=== PATIENT | female | born 1970 | race Caucasian/White ===

== ENCOUNTER 2018-10-14 06:56 | Day surgery (SDC) | payer OTHER ==
[~2018-10-14 06:56] MED LIST: Lactated Ringers 1,000 ML IV SCH; Lidocaine 1%/Sod Bicarbonate in NS 8.4% 1 ML Syringe IDERM PRN; Sodium Chloride 0.9% 10 ML Syringe FLUSH PRN
[2018-10-14] MEDS ORDERED: Scopolamine 1.5 MG Transdermal Patch TRDERM PRN (07:00)
[2018-10-14] MEDS ORDERED: Lidocaine 1% with EPINEPHrine 1:100,000 20 ML MDV ONE ×2 (07:08→07:44)
[2018-10-14] MEDS ORDERED: Bupivacaine 0.5% 30 ML SDV ONE (07:08)
[2018-10-14] MEDS ORDERED: Sodium Chloride 0.9% 50 ML SDV ONE ×2 (07:08→07:44)
[2018-10-14] MEDS ORDERED: Propofol 200 MG/20 ML SDV ONE (07:09)
[2018-10-14] MEDS ORDERED: fentaNYL 100 MCG/2 ML SDV ONE ×2 (07:10→08:19)
[2018-10-14] MEDS ORDERED: Midazolam 1 MG/ML 2 ML SDV ONE (07:10)
[2018-10-14] MEDS ORDERED: Rocuronium 50 MG/5 ML Vial ONE (07:10)
[2018-10-14] MEDS ORDERED: Ondansetron 4 MG/2 ML SDV ONE (07:11)
[2018-10-14] MEDS ORDERED: Ketorolac 30 MG/ML SDV ONE (07:11)
--- NOTE | 2018-10-14 07:24 | PCM.PREANE ---
Preanesthetic Assessment - Anesthesia/Transfusion/Family Hx Anesthesia History: Prior Anesthesia Without Reaction Family History of Anesthesia Reaction: No Transfusion History: No Prior Transfusion(s) Type of Transfusion Reactions: Reports: Unknown Intubation History: Unknown - Review of Systems General: No Symptoms Pulmonary: No Symptoms Cardiovascular: No Symptoms Gastrointestinal: No Symptoms Neurological: No Symptoms Other: Reports: Depression - Physical Assessment NPO Status Date: 10/13/18 NPO Status Time: 07:00 Height: 1.75 m Weight: 127.006 kg ASA Class: 3 Mental Status: Alert & Oriented x3 Airway Class: Mallampati = 3 Dentition: Reports: Missing Tooth/Teeth Lungs: Clear to Auscultation, Normal Respiratory Effort Cardiovascular: Regular Rate, Regular Rhythm - Allergies Allergies/Adverse Reactions: Allergies Allergy/AdvReac Type Severity Reaction Status Date / Time levofloxacin Allergy Redness Verified 10/13/18 11:17 - Blood Blood Available: Yes - Acknowledgements Anesthesia Type Planned: General Anesthesia Pt an Appropriate Candidate for the Planned Anesthesia: Yes Alternatives and Risks of Anesthesia Discussed w Pt/Guardian: Yes Pt/Guardian Understands and Agrees with Anesthesia Plan: Yes Additional Comments: diagnosed with a murmur- no comments when hasd PreAnesthesia Questionnaire HEENT History: Reports: Sinusitis, Other (See Below) Other HEENT History: conjunctivitis Cardiovascular History: Reports: Other (See Below) Other Cardiovascular History: abnormal stress test, chest pain (was ruled out by cardiology) Respiratory History: Reports: None Gastrointestinal History: Reports: GERD, Other (See Below) Other Gastrointestinal History: irregular bowel habits Genitourinary History: Reports: Renal Disease TAILINGS MAN History: Reports: Endometrial Ablation, Other (See Below) Other OB/BYN History: ovarian cyst, post menopausal bleeding, irregular menses, pelvic pain, vaginosis Musculoskeletal History: Reports: Gout, Other (See Below) Other Musculoskeletal History: achilles tendonitis, right ankle pain, right wrist cyst excision Neurological History: Reports: None Psychiatric History: Reports: Depression Endocrine/Metabolic History: Reports: None Hematologic History: Reports: None Immunologic History: Reports: None Oncologic (Cancer) History: Reports: None Dermatologic History: Reports: Other (See Below) Other Dermatologic History: abcess, herpes zoster - Past Surgical History Head Surgeries/Procedures: Reports: None HEENT Surgical History: Reports: Radial Keratotomy, Tonsillectomy Cardiovascular Surgical History: Reports: None Respiratory Surgical History: Reports: None GI Surgical History: Reports: Colonoscopy Female Surgical History: Reports: None Male Surgical History: Reports: None Endocrine Surgical History: Reports: None Neurological Surgical History: Reports: None Oncologic Surgical History: Reports: None Dermatological Surgical History: Reports: None - SUBSTANCE USE Smoking Status *Q: Never Smoker Recreational Drug Use History: No - HOME MEDS Home Medications: Home Meds DULoxetine [Cymbalta] 30 mg PO DAILY 10/01/13 [History] lamoTRIgine [Lamictal] 100 mg PO DAILY 10/01/13 [History] Cholecalciferol (Vitamin D3) [Vitamin D3] 2,000 unit PO DAILY 10/13/18 [History] Fish Oil/DHA/EPA [Fish Oil 1,200 MG] 1 cap PO DAILY 10/13/18 [History] Ranitidine HCl [Zantac] 150 mg PO DAILY 10/13/18 [History] - CURRENT (IN HOUSE) MEDS Current Meds: Current Medications Lactated Ringer's (Ringers, Lactated) 1,000 mls @ 125 mls/hr IV ASDIRECTED KAMALA Stop: 10/14/18 23:00 Lidocaine/Sodium Bicarbonate (Buffered Lidocaine 1% In Ns 8.4%) 0.25 ml IDERM ONETIME PRN PRN Reason: Prior to IV Start Stop: 10/14/18 18:00 Scopolamine (Transderm-Scop) 1.5 mg TRDERM ONETIME PRN PRN Reason: Nausea Stop: 10/14/18 18:00 Last Admin: 10/14/18 07:19 Dose: 1.5 mg Sodium Chloride (Saline Flush) 10 ml FLUSH ASDIRECTED PRN PRN Reason: Keep Vein Open Stop: 10/14/18 18:00 Discontinued Medications Bupivacaine HCl (Marcaine 0.5%) Confirm Administered Dose 30 ml .ROUTE .STK-MED ONE Stop: 10/14/18 07:09 Fentanyl (Sublimaze) Confirm Administered Dose 100 mcg .ROUTE .STK-MED ONE Stop: 10/14/18 07:11 Ketorolac Tromethamine (Toradol) Confirm Administered Dose 30 mg .ROUTE .STK- MED ONE Stop: 10/14/18 07:12 Lidocaine/Epinephrine (Xylocaine 1% With Epinephrine 1:100,000) Confirm Administered Dose 20 ml .ROUTE .STK-MED ONE Stop: 10/14/18 07:09 Midazolam HCl (Versed 1 Mg/Ml) Confirm Administered Dose 2 mg .ROUTE .STK-MED ONE Stop: 10/14/18 07:11 Ondansetron HCl (Zofran) Confirm Administered Dose 4 mg .ROUTE .STK-MED ONE Stop: 10/14/18 07:12 Propofol (Diprivan 20 Ml) Confirm Administered Dose 200 mg .ROUTE .STK-MED ONE Stop: 10/14/18 07:10 Rocuronium [place] (Zemuron) Confirm Administered Dose 50 mg .ROUTE .STK-MED ONE Stop: 10/14/18 07:11 Sodium Chloride (Normal Saline) Confirm Administered Dose 50 ml .ROUTE .[employer]-MED ONE Stop: 10/14/18 07:09
[2018-10-14] MEDS ORDERED: ceFAZolin 1 GM Vial ONE ×2 (07:31)
[2018-10-14] MEDS ORDERED: HYDROmorphone 0.5 MG/0.5 ML Syringe ONE ×4 (08:20→08:21)
[2018-10-14] MEDS ORDERED: Dexamethasone 4 MG/ML 5 ML MDV ONE (08:42)
[2018-10-14] MEDS ORDERED: Labetalol 100 MG/20 ML MDV ONE (08:58)
--- NOTE | 2018-10-14 10:00 | PCM.OPNOTE ---
- General Post-Op/Procedure Note Date of Surgery/Procedure: 10/14/18 Operative Procedure(s): total vaginal hysterectomy bilateral salpingo- oophorectomy Pre Op Diagnosis: postmenopausal bleeding, irregular menses, cystic left ovary Post-Op Diagnosis: Same Anesthesia Technique: General ET Tube Primary Surgeon: Madi Cleary Secondary Surgeon: Edwin Boykin Anesthesia Provider: Philippe Bill Studio Owner: Teodoro Nielson (VICK) Studio Owner: Bethany Rich (VICK) Reason Studio Owner Was Necessary: difficulty of surgery, retraction, decrease comorbidity and mortality Role of Studio Owner: difficulty of surgery, retraction, decrease comorbidity and mortality Fluid Replacement, Intraop: 1,200 Output, Urine Amount: 20 (clear yellow) EBL in mLs: 150 Drain/Tube Comments:: none Complications: None Condition: Good Free Text/Narrative:: Patient was transported to the operating room and placed under general anesthesia with endotracheal intubation low dorsal lithotomy position. Prepared and draped in a sterile fashion. SCDs functioning prior surgery. Ancef 2 g given intravenously prior surgery. Examination under anesthesia revealed anterior uterus with small left adnexal cyst. The determination was made to proceed vaginally rather than laparoscope assisted. This had been discussed with patient. Timeout was performed. The uterus was grasped and 0.25% lidocaine with epinephrine injected in multiple confluent areas 20 mL total. Circumscribing the cervix posterior colpotomy was performed. Long weighted speculum placed and crossclamping with the Enseal activating and incising the left to grow cardinal ligament sec 2, same procedure carried out on the opposite side proceeding cephalad crossclamping incising with the Enseal uterine vasculature was crossclamped. Anterior colpotomy was then performed. Proceeding cephalad crossclamping activating Enseal and incising until the triple pedicle was approximated. The uterus was then brought to the posterior cul-de-sac crossclamping the left triple pedicle incising same procedure carried out on the opposite side the uterus was removed the left tube and ovary grasped with long [place] clamp and utilizing Enseal crossclamping the infundibulopelvic ligament activating and incising the left tube and ovary removed same procedure was carried out on the right side of what appeared to be the right ovary which is very small measuring approximately 1.2 x 8 mm x 8 mm. No other additional structure. The ovary. All tissue sent to pathology for tissue evaluation the posterior vaginal cuff was then closed with a running locking suture of 0 Monocryl and evaluation for hemostasis showed no bleeding. The anterior and posterior cuff was approximated with 0 Monocryl. Sponge needle pack and instrument count correct 2. No blood transfusions required. 20 mL of clear yellow urine obtained from the bladder at the end procedure. Patient transported postanesthesia care unit in satisfactory condition. She lives in [facility] will be Extended Recovery Overnight and Probably Sent Home Tomorrow Morning.
--- NOTE | 2018-10-14 10:02 | PCM48HPAN ---
Post Anesthesia Note - EVALUATION WITHIN 48HRS OF ANESTHETIC Vital Signs in Normal Range: Yes Patient Participated in Evaluation: Yes Respiratory Function Stable: Yes Airway Patent: Yes Cardiovascular Function Stable: Yes Hydration Status Stable: Yes Pain Control Satisfactory: Yes Nausea and Vomiting Control Satisfactory: Yes Mental Status Recovered: Yes Resp Rate: 16
--- NOTE | 2018-10-14 10:02 | PCM.POSTAN ---
POST ANESTHESIA ASSESSMENT - MENTAL STATUS Mental Status: Alert - RESPIRATORY Respiratory Status: Respiratory Rate WNL, Airway Patent, O2 Saturation Stable, Supplemental Oxygen - CARDIOVASCULAR CV Status: Pulse Rate WNL, Blood Pressure Stable - GASTROINTESTINAL GI Status: No Symptoms - POST OP HYDRATION Hydration Status: Adequate & Stable
[2018-10-14] MEDS ORDERED: Ondansetron 4 MG/2 ML SDV IV PRN (10:09)
[2018-10-14] MEDS ORDERED: Ondansetron 4 MG in Sodium Chloride 0.9% 50 ML IV SCH (10:15)
[2018-10-14] MEDS: Acetaminophen/oxyCODONE 325-5 MG Tab PO PRN (11:07)
[2018-10-14] MEDS: Ketorolac 30 MG/ML SDV IVPUSH SCH ×2 (14:08→21:13)
[2018-10-14] MEDS ORDERED: Ondansetron 4 MG/2 ML SDV IVPUSH ONE (15:24)
[2018-10-14] MEDS ORDERED: DULoxetine 30 MG Cap PO SCH (16:00)
[2018-10-14] MEDS ORDERED: lamoTRIgine 100 MG Tab PO SCH (16:00)
[2018-10-14] MEDS ORDERED: Ranitidine Hcl 150 MG PO SCH (16:00)
[2018-10-15] MEDS: Ketorolac 30 MG/ML SDV IVPUSH SCH (01:20)
--- NOTE | 2018-10-15 08:03 | PCM.DCSUM1 ---
Discharge Summary - Hospital Course Free Text/Narrative:: [facility] Post-Op/Procedure Note Patient Name: ROBERT LANCASTER Date of : 66 Patient Status: Surgical Day Care Attending Provider: Madi Cleary Date: 10/14/18 09:50 Initialization Date: 10/14/18 09:50 - General Post-Op/Procedure Note Date of Surgery/Procedure: 10/14/18 Operative Procedure(s): total vaginal hysterectomy bilateral salpingo- oophorectomy Pre Op Diagnosis: postmenopausal bleeding, irregular menses, cystic left ovary Post-Op Diagnosis: Same Anesthesia Technique: General ET Tube Primary Surgeon: Madi Cleary Secondary Surgeon: Edwin Boykin Anesthesia Provider: Philippe Bill Rugby [employer] Footballer: Teodoro Nielson (PAS) Rugby Union Footballer: Bethany Rich (PAS) Reason Rugby Union Footballer Was Necessary: difficulty of surgery, retraction, decrease comorbidity and mortality Role of Rugby Union Footballer: difficulty of surgery, retraction, decrease comorbidity and mortality Fluid Replacement, Intraop: 1,200 Output, Urine Amount: 20 (clear yellow) EBL in mLs: 150 Drain/Tube Comments:: none Complications: None Condition: Good Free Text/Narrative:: Patient was transported to the operating room and placed under general anesthesia with endotracheal intubation low dorsal lithotomy position. Prepared and draped in a sterile fashion. SCDs functioning prior surgery. Ancef 2 g given intravenously prior surgery. Examination under anesthesia revealed anterior uterus with small left adnexal cyst. The determination was made to proceed vaginally rather than laparoscope assisted. This had been discussed with patient. Timeout was performed. The uterus was grasped and 0.25% lidocaine with epinephrine injected in multiple confluent areas 20 mL total. Circumscribing the cervix posterior colpotomy was performed. Long weighted speculum placed and crossclamping with the Enseal activating and incising the left to grow cardinal ligament sec 2, same procedure carried out on the opposite side proceeding cephalad crossclamping incising with the Enseal uterine vasculature was crossclamped. Anterior colpotomy was then performed. Proceeding cephalad crossclamping activating Enseal and incising until the triple pedicle was approximated. The uterus was then brought to the posterior cul-de-sac crossclamping the left triple pedicle incising same procedure carried out on the opposite side the uterus was removed the left tube and ovary grasped with long José Miguel clamp and utilizing Enseal crossclamping the infundibulopelvic ligament activating and incising the left tube and ovary removed same procedure was carried out on the right side of what appeared to be the right ovary which is very small measuring approximately 1.2 x 8 mm x 8 mm. No other additional structure. The ovary. All tissue sent to pathology for tissue evaluation the posterior vaginal cuff was then closed with a running locking suture of 0 Monocryl and evaluation for hemostasis showed no bleeding. The anterior and posterior cuff was approximated with 0 Monocryl. Sponge needle pack and instrument count correct 2. No blood transfusions required. 20 mL of clear yellow urine obtained from the bladder at the end procedure. Patient transported postanesthesia care unit in satisfactory condition. She lives in [facility] will be Extended Recovery Overnight and Probably Sent Home Tomorrow Morning. 10/15/2018 0758 Patient kept on extended floor recover overnight to manage O2, nausea postop and pain. Doing well this morning no nausea, O2 normal on room air and no bleeding. Labs reviewed. Dismiss to RTC 2 weeks. HPI Initial Comments: [facility] Post-Op/Procedure Note Patient Name: ROBERT LANCASTER Date of : 66 Patient Status: Surgical Day Care Attending Provider: Madi Cleary Date: 10/14/18 09:50 Initialization Date: 10/14/18 09:50 - General Post-Op/Procedure Note Date of Surgery/Procedure: 10/14/18 Operative Procedure(s): total vaginal hysterectomy bilateral salpingo- oophorectomy Pre Op Diagnosis: postmenopausal bleeding, irregular menses, cystic left ovary Post-Op Diagnosis: Same Anesthesia Technique: General ET Tube Primary Surgeon: Madi Cleary Secondary Surgeon: Edwin Boykin Anesthesia Provider: Philippe Bill Rugby [employer] Footballer: Teodoro Nielson (PAS) Rugby [employer] Footballer: Bethany Rich (PAS) Reason Rugby Union Footballer Was Necessary: difficulty of surgery, retraction, decrease comorbidity and mortality Role of Rugby Union Footballer: difficulty of surgery, retraction, decrease comorbidity and mortality Fluid Replacement, Intraop: 1,200 Output, Urine Amount: 20 (clear yellow) EBL in mLs: 150 Drain/Tube Comments:: none Complications: None Condition: Good Free Text/Narrative:: Patient was transported to the operating room and placed under general anesthesia with endotracheal intubation low dorsal lithotomy position. Prepared and draped in a sterile fashion. SCDs functioning prior surgery. Ancef 2 g given intravenously prior surgery. Examination under anesthesia revealed anterior uterus with small left adnexal cyst. The determination was made to proceed vaginally rather than laparoscope assisted. This had been discussed with patient. Timeout was performed. The uterus was grasped and 0.25% lidocaine with epinephrine injected in multiple confluent areas 20 mL total. Circumscribing the cervix posterior colpotomy was performed. Long weighted speculum placed and crossclamping with the Enseal activating and incising the left to grow cardinal ligament sec 2, same procedure carried out on the opposite side proceeding cephalad crossclamping incising with the Enseal uterine vasculature was crossclamped. Anterior colpotomy was then performed. Proceeding cephalad crossclamping activating Enseal and incising until the triple pedicle was approximated. The uterus was then brought to the posterior cul-de-sac crossclamping the left triple pedicle incising same procedure carried out on the opposite side the uterus was removed the left tube and ovary grasped with long José Miguel clamp and utilizing Enseal crossclamping the infundibulopelvic ligament activating and incising the left tube and ovary removed same procedure was carried out on the right side of what appeared to be the right ovary which is very small measuring approximately 1.2 x 8 mm x 8 mm. No other additional structure. The ovary. All tissue sent to pathology for tissue evaluation the posterior vaginal cuff was then closed with a running locking suture of 0 Monocryl and evaluation for hemostasis showed no bleeding. The anterior and posterior cuff was approximated with 0 Monocryl. Sponge needle pack and instrument count correct 2. No blood transfusions required. 20 mL of clear yellow urine obtained from the bladder at the end procedure. Patient transported postanesthesia care unit in satisfactory condition. She lives in [facility] will be Extended Recovery Overnight and Probably Sent Home Tomorrow Morning. 10/15/2018 0758 Patient kept on extended floor recover overnight to manage O2, nausea postop and pain. Doing well this morning no nausea, O2 normal on room air and no bleeding. Labs reviewed. Dismiss to RTC 2 weeks. Brief History: [facility] . Post-Op/Procedure Note. Patient Name: ROBERT LANCASTER Record Number: [id number]. Date of : Patient Status: Surgical Day Care. Attending Provider: Madi Clearyount Number: [id number]. Date: 10/14/18 09:50Initialization Date: 03/24 09:50. - General Post-Op/Procedure Note. Date of Surgery/Procedure: 03/24. Operative Procedure(s): total vaginal hysterectomy bilateral salpingo- oophorectomy. Pre Op Diagnosis: postmenopausal bleeding, irregular menses, cystic left ovary. Post-Op Diagnosis: Same. Anesthesia Technique: General ET Tube. Primary Surgeon: Madi Cleary. Secondary Surgeon: Edwin Boykin. Anesthesia Provider: Philippe Bill. Rugby Union Footballer: Teodoro Nielson (VICK). Rugby Union Footballer : Bethany Rich (VICK). Reason Rugby Union Footballer Was Necessary: difficulty of surgery, retraction, decrease comorbidity and mortality. Role of Rugby Union Footballer: difficulty of surgery, retraction, decrease comorbidity and mortality. Fluid Replacement, Intraop: 1,200. Output, Urine Amount: 20 (clear yellow). EBL in mLs: 150. Drain/Tube Comments:: none. Complications: None. Condition: Good. Free Text/ Narrative:: Patient was transported to the operating room and placed under general anesthesia with endotracheal intubation low dorsal lithotomy position. Prepared and draped in a sterile fashion. SCDs functioning prior surgery. Ancef 2 g given intravenously prior surgery. Examination under anesthesia revealed anterior uterus with small left adnexal cyst. The determination was made to proceed vaginally rather than laparoscope assisted. This had been discussed with patient. Timeout was performed. The uterus was grasped and 0.25% lidocaine with epinephrine injected in multiple confluent areas 20 mL total. Circumscribing the cervix posterior colpotomy was performed. Long weighted speculum placed and crossclamping with the Enseal activating and incising the left to grow cardinal ligament sec 2, same procedure carried out on the opposite side proceeding cephalad crossclamping incising with the Enseal uterine vasculature was crossclamped. Anterior colpotomy was then performed. Proceeding cephalad crossclamping activating Enseal and incising until the triple pedicle was approximated. The uterus was then brought to the posterior cul-de-sac crossclamping the left triple pedicle incising same procedure carried out on the opposite side the uterus was removed the left tube and ovary grasped with long José Miguel clamp and utilizing Enseal crossclamping the infundibulopelvic ligament activating and incising the left tube and ovary removed same procedure was carried out on the right side of what appeared to be the right ovary which is very small measuring approximately 1.2 x 8 mm x 8 mm. No other additional structure. The ovary. All tissue sent to pathology for tissue evaluation the posterior vaginal cuff was then closed with a running locking suture of 0 Monocryl and evaluation for hemostasis showed no bleeding. The anterior and posterior cuff was approximated with 0 Monocryl. Sponge needle pack and instrument count correct 2. No blood transfusions required. 20 mL of clear yellow urine obtained from the bladder at the end procedure. Patient transported postanesthesia care unit in satisfactory condition. She lives in [facility] will be Extended Recovery Overnight and Probably Sent Home Tomorrow Morning. 10/15/2018 0758. Patient kept on extended floor recover overnight to manage O2, nausea postop and pain. Doing well this morning no nausea, O2 normal on room air and no bleeding. Labs reviewed. Dismiss to RTC 2 weeks. Diagnosis: Stroke: No - Discharge Data Discharge Date: 10/15/18 Discharge Disposition: Home, Self-Care 01 Condition: Good - Discharge Diagnosis/Problem(s) (1) Ovarian cyst, left SNOMED Code(s): 44471094 ICD Code: N83.202 - UNSPECIFIED OVARIAN CYST, LEFT SIDE Status: Acute Current Visit: Yes (2) Irregular menses SNOMED Code(s): 67179701 ICD Code: N92.6 - IRREGULAR MENSTRUATION, UNSPECIFIED Status: Acute Current Visit: Yes (3) Postmenopausal bleeding SNOMED Code(s): 30751580 ICD Code: N95.0 - POSTMENOPAUSAL BLEEDING Status: Acute Current Visit: Yes - Patient Summary/Data Operative Procedure(s) Performed: total vaginal hysterectomy bilateral salpingo- oophorectomy Complications: none during the night Consults: none Hospital Course: uneventful. - Patient Instructions Diet: Usual Diet as Tolerated Driving: Do Not Drive (2 weeks) Showering/Bathing: May Shower, No Tub Bathing/Swimming (I'm 6 weeks) Notify Provider of: Fever, Increased Pain, Swelling and Redness, Drainage, Nausea and/or Vomiting - Discharge Plan *PRESCRIPTION DRUG MONITORING PROGRAM REVIEWED*: Yes *COPY OF PRESCRIPTION DRUG MONITORING REPORT IN PATIENT JULIAN: Yes Prescriptions/Med Rec: Acetaminophen/oxyCODONE [Percocet 325-5 MG] 1 tab PO Q6H PRN #30 tablet PRN Reason: Pain Docusate Sodium [Colace] 100 mg PO BID #60 capsule Ibuprofen [Motrin] 200 - 600 mg PO Q6H PRN #50 tab PRN Reason: Pain Ondansetron [Zofran ODT] 4 mg PO Q6H PRN #20 tab.dis PRN Reason: Nausea Home Medications: Home Meds DULoxetine [Cymbalta] 30 mg PO DAILY 10/01/13 [History] lamoTRIgine [Lamictal] 100 mg PO DAILY 10/01/13 [History] Cholecalciferol (Vitamin D3) [Vitamin D3] 2,000 unit PO DAILY 10/13/18 [History] Fish Oil/DHA/EPA [Fish Oil 1,200 MG] 1 cap PO DAILY 10/13/18 [History] Ranitidine HCl [Zantac] 150 mg PO DAILY 10/13/18 [History] Acetaminophen/oxyCODONE [Percocet 325-5 MG] 1 tab PO Q6H PRN #30 tablet [Rx] Ibuprofen [Motrin] 200 - 600 mg PO Q6H PRN #50 tab 10/14/18 [Rx] Ondansetron [Zofran ODT] 4 mg PO Q6H PRN #20 tab.dis 10/14/18 [Rx] Docusate Sodium [Colace] 100 mg PO BID #60 capsule 10/15/18 [Rx] Referrals: Madi Cleary MD [Physician] - (has follow up in two weeks) - Discharge Summary/Plan Comment DC Time >30 min.: No - Patient Data Vitals - Most Recent: Last Vital Signs Temp 98.2 F 10/15/18 03:41 Pulse 68 10/15/18 03:41 Resp 20 10/15/18 03:41 BP 135/63 10/15/18 03:41 Pulse Ox 96 10/15/18 03:41 Weight - Most Recent: 280 lb I&O - Last 24 hours: Intake & Output 10/14/18 10/15/18 10/15/18 22:59 06:59 14:59 Intake Total 1150 Output Total 250 Balance 900 Lab Results - Last 24 hrs: Laboratory Results - last 24 hr 10/14/18 10/15/18 Range/Units 07:35 05:40 WBC 9.69 (3.98-10.04) K/mm3 RBC 4.82 (3.98-5.22) M/mm3 Hgb 12.7 (11.2-15.7) gm/L Hct 38.8 (34.1-44.9) % MCV 80.5 (79.4-94.8) fl MCH 26.3 (25.6-32.2) pg MCHC 32.7 (32.2-35.5) g/dl RDW Std Deviation 37.5 (36.4-46.3) fL Plt Count 310 (182-369) K/mm3 MPV 9.0 L (9.4-12.3) fl Neut % (Auto) 80.5 H (34.0-71.1) % Lymph % (Auto) 14.2 L (19.3-51.7) % [place] % (Auto) 5.2 (4.7-12.5) % Eos % (Auto) 0 L (0.7-5.8) Baso % (Auto) 0.0 L (0.1-1.2) % Neut # (Auto) 7.80 H (1.56-6.13) K/mm3 Lymph # (Auto) 1.38 (1.18-3.74) K/mm3 [place] # (Auto) 0.50 H (0.24-0.36) K/mm3 Eos # (Auto) 0.00 L (0.04-0.36) K/mm3 Baso # (Auto) 0.00 L (0.01-0.08) K/mm3 Blood Type B POSITIVE Gel Antibody Screen Negative Med Orders - Current: Current Medications Duloxetine HCl (Cymbalta) 30 mg PO DAILY@1600 [facility] Last Admin: 10/14/18 16:29 Dose: 30 mg Lamotrigine (Lamotrigine) 100 mg PO DAILY@1600 [facility] Last Admin: 10/14/18 16:29 Dose: 100 mg Miscellaneous Information (Remove Patch) 0 ea TRDERM ONETIME ONE Stop: 10/17/18 07:01 Ondansetron HCl (Zofran) 4 mg IV Q6H PRN PRN Reason: Nausea/Vomiting Last Admin: 10/14/18 11:34 Dose: 4 mg Oxycodone/Acetaminophen (Percocet 325-5 Mg) 1 - 2 tab PO Q4H PRN PRN Reason: Pain Last Admin: 10/14/18 11:07 Dose: 2 tab Ranitidine Hcl 150 (Mg) 0 each PO DAILY@1600 [facility] Last Admin: 10/14/18 16:29 Dose: Not Given Discontinued Medications Bupivacaine HCl (Marcaine 0.5%) Confirm Administered Dose 30 ml .ROUTE .STK-MED ONE Stop: 10/14/18 07:09 Cefazolin Sodium (Ancef) Confirm Administered Dose 1 gm .ROUTE .STK-MED ONE Stop: 10/14/18 07:32 Cefazolin Sodium (Ancef) Confirm Administered Dose 1 gm .ROUTE .STK-MED ONE Stop: 10/14/18 07:32 Dexamethasone (Dexamethasone) Confirm Administered Dose 20 mg .ROUTE .STK-MED ONE Stop: 10/14/18 08:43 Fentanyl (Sublimaze) Confirm Administered Dose 100 mcg .ROUTE .STK-MED ONE Stop: 10/14/18 07:11 Fentanyl (Sublimaze) Confirm Administered Dose 100 mcg .ROUTE .STK-MED ONE Stop: 10/14/18 08:20 Glycopyrrolate () Confirm Administered Dose 1 mg .ROUTE .STK-MED ONE Stop: 10/14/18 08:27 Hydromorphone HCl (Dilaudid) Confirm Administered Dose 0.5 mg .ROUTE .STK-MED ONE Stop: 10/14/18 08:21 Hydromorphone HCl (Dilaudid) Confirm Administered Dose 0.5 mg .ROUTE .STK-MED ONE Stop: 10/14/18 08:21 Hydromorphone HCl (Dilaudid) Confirm Administered Dose 0.5 mg .ROUTE .STK-MED ONE Stop: 10/14/18 08:21 Hydromorphone HCl (Dilaudid) Confirm Administered Dose 0.5 mg .ROUTE .STK-MED ONE Stop: 10/14/18 08:22 Lactated Ringer's (Ringers, Lactated) 1,000 mls @ 125 mls/hr IV ASDIRECTED [facility] Stop: 10/14/18 23:00 Last Admin: 10/14/18 07:20 Dose: 125 mls/hr Ondansetron HCl 4 mg/ Sodium (Chloride) 52 mls @ 100 mls/hr IV Q6H [facility] Ketorolac Tromethamine (Toradol) Confirm Administered Dose 30 mg .ROUTE .STK- MED ONE Stop: 10/14/18 07:12 Ketorolac Tromethamine (Toradol) 30 mg IVPUSH Q6H [facility] Stop: 10/15/18 02:16 Last Admin: 10/15/18 01:20 Dose: 30 mg Labetalol HCl (Normodyne) Confirm Administered Dose 100 mg .ROUTE .STK-MED ONE Stop: 10/14/18 08:59 Lidocaine/Epinephrine (Xylocaine 1% With Epinephrine 1:100,000) Confirm Administered Dose 20 ml .ROUTE .STK-MED ONE Stop: 10/14/18 07:09 Lidocaine/Epinephrine (Xylocaine 1% With Epinephrine 1:100,000) Confirm Administered Dose 20 ml .ROUTE .STK-MED ONE Stop: 10/14/18 07:45 Last Admin: 10/14/18 08:34 Dose: 5 ml Lidocaine/Sodium Bicarbonate (Buffered Lidocaine 1% In Ns 8.4%) 0.25 ml IDERM ONETIME PRN PRN Reason: Prior to IV Start Stop: 10/14/18 18:00 Last Admin: 10/14/18 07:20 Dose: 0.25 ml Midazolam HCl (Versed 1 Mg/Ml) Confirm Administered Dose 2 mg .ROUTE .STK-MED ONE Stop: 10/14/18 07:11 Ondansetron HCl (Zofran) Confirm Administered Dose 4 mg .ROUTE .STK-MED ONE Stop: 10/14/18 07:12 Ondansetron HCl (Zofran) 4 mg IVPUSH ONETIME ONE Stop: 10/14/18 15:25 Last Admin: 10/14/18 15:25 Dose: 4 mg Propofol (Diprivan 20 Ml) Confirm Administered Dose 200 mg .ROUTE .STK-MED ONE Stop: 10/14/18 07:10 Rocuronium Lytle (Zemuron) Confirm Administered Dose 50 mg .ROUTE .STK-MED ONE Stop: 10/14/18 07:11 Scopolamine (Transderm-Scop) 1.5 mg TRDERM ONETIME PRN PRN Reason: Nausea Stop: 10/14/18 18:00 Last Admin: 10/14/18 07:19 Dose: 1.5 mg Sodium Chloride (Saline Flush) 10 ml FLUSH ASDIRECTED PRN PRN Reason: Keep Vein Open Stop: 10/14/18 18:00 Sodium Chloride (Normal Saline) Confirm Administered Dose 50 ml .ROUTE .STK-MED ONE Stop: 10/14/18 07:09 Sodium Chloride (Normal Saline) Confirm Administered Dose 50 ml .ROUTE .STK-MED ONE Stop: 10/14/18 07:45 Last Admin: 10/14/18 08:34 Dose: 15 ml
[2018-10-15 08:39] VITALS: BP 130/69
[2018-10-15] MEDS: Acetaminophen/oxyCODONE 325-5 MG Tab PO PRN (09:01)
== END 2018-10-15 10:48 | disposition home or self-care (01) ==
LOC: JD.SDS 06:56 → JD.MS 16:15 → JD.SDS 10-15 10:48
PROVIDERS: ATTEND Obstetrics & Gynecology
DX: D25.9 Leiomyoma of uterus, unspecified (principal); N80.0 Endometriosis of uterus; N80.1 Endometriosis of ovary; N80.2 Endometriosis of fallopian tube; N73.6 Female pelvic peritoneal adhesions (postinfective); N83.8 Other noninflammatory disorders of ovary, fallopian tube and broad ligament; K21.9 Gastro-esophageal reflux disease without esophagitis; F32.9 Major depressive disorder, single episode, unspecified; Z88.1 Allergy status to other antibiotic agents; Z79.899 Other long term (current) drug therapy
CPT/HCPCS: 36415; 58262; 81025; 85025; 86850; 86900; 86901; A9270; J0690; J1100; J1170; J1885; J2250; J2405; J2704; J3010; J3490; J7120; 00944